=== PATIENT | female | born 2000 | race Caucasian/White ===

== ENCOUNTER 2022-12-02 19:35 | Emergency (ER) | payer MEDICARE, MEDICAID ==
[2022-12-02] MEDS ORDERED: QUEtiapine 25 MG Tab PO ONE ×2 (20:53→20:55)
[2022-12-02] MEDS ORDERED: QUEtiapine 100 MG Tab ONE ×2 (21:05→21:09)
[2022-12-02] MEDS ORDERED: QUEtiapine 100 MG Tab PO STA ×2 (21:28→21:29)
== END 2022-12-02 21:38 | disposition home or self-care (01) ==
LOC: MW.ED 19:35
DX: Z76.0 Encounter for issue of repeat prescription (principal)
CPT/HCPCS: 99283; A9270